=== PATIENT | male | born 1940 | race Caucasian/White ===

== ENCOUNTER 2019-12-21 15:30 | Emergency (ER) | payer MEDICARE, OTHER ==
[~2019-12-21 15:30] MED LIST: Iopamidol 370 76% 100 ML VIAL ONE
[2019-12-21] MEDS ORDERED: Nitroglycerin 2% Ointment 1 INCH/1 GM Packet ONE (15:47)
[2019-12-21] MEDS ORDERED: Aspirin Chewable 81 MG TAB ONE ×2 (15:47→15:57)
[2019-12-21 16:12] LABS: Hemoglobin 14.9 g/dL (14.0-18.0); Lymphocytes 31 % (21-51); MDiff Complete? YES; Mean Corpuscular HGB CONC 31.9 g/dL (32.0-36.0); Mean Corpuscular Hemoglobin 28.3 pg (27.0-31.0); Mean Corpuscular Volume 88.6 fL (78.0-98.0); Monocytes 6 % (0-10); Neutrophil 55 % (42-75); Platelet Count 302 thou/uL (130-400); RBC Distribution Width 12.4 % (11.5-14.5); Reactive Lymphocytes 8 % (0-10); Red Blood Cell (RBC) Count 5.26 mill/uL (4.70-6.10); White Blood Cell (WBC) Count 7.6 thou/uL (4.8-10.8)
--- NOTE | 2019-12-21 16:18 | RAD ---
CHEST ONE VIEW: 12/21/19 INDICATIONS: Chest pain. COMPARISON: None. FINDINGS: Lungs are clear. Heart size is normal appearing. No pleural effusion or pneumothorax is evident. Ther e is some pleural based calcification involving the left lung apex. No acute osseous abnormality is e vident. IMPRESSION: No acute cardiopulmonary abnormality. POS: [facility]
[2019-12-21 16:31] LABS: ALT (SGPT) 14 U/L (8-55); AST (SGOT) 19 U/L (5-34); Albumin 4.7 g/dL (3.4-4.8); Alkaline Phosphatase 93 U/L (40-110); Anion Gap 18 mmol/L (10-20); BUN (Urea Nitrogen) 15 mg/dL (8.4-25.7); Bilirubin, Total 0.6 mg/dL (0.2-1.2); CK (CPK) 113 U/L (30-200); Calc. Creatinine Clearance 0 mL/min (70-130); Calcium 9.6 mg/dL (7.8-10.44); Carbon Dioxide 26 mmol/L (23-31); Chloride 98 mmol/L (98-107); Estimated GFR-MDRD 60; Globulin 3.4 g/dL (2.4-3.5); Glucose 104 mg/dL (83-110); Lipase 29 U/L (8-78); Potassium 4.1 mmol/L (3.5-5.1); Protein, Total 8.1 g/dL (5.8-8.1); Sodium 138 mmol/L (136-145)
--- NOTE | 2019-12-21 18:12 | CT ---
CT PULMONARY ANGIOGRAM WITH IV CONTRAST AND 3-D POSTPROCESSING: HISTORY:Chest pain FINDINGS: There is good contrast opacification of the pulmonary arterial vasculature without filling defects to suggest pulmonary embolism. The thoracic aorta is well opacified without aneurysm or dissection. No pleural or pericardial effusions are seen. No pneumothoraces, focal areas of consolidation or lung masses are noted. There is biapical scarring. There is a 5 mm peripheral nodule in the left lower lobe. A 4 mm nodule is seen in the periphery of the left upper lobe. There are degenerative changes in the spine. Upper abdominal tomograms demonstrate multiple cysts in the liver.. IMPRESSION: 1. No CT evidence of pulmonary embolism. 2. Left lung nodule should be monitored with follow-up CT scan in 12 months.
== END 2019-12-21 18:50 | disposition short-term general hospital (02) ==
LOC: MADERS 15:30
DX: R07.9 Chest pain, unspecified (principal)
CPT/HCPCS: 36415; 71045; 71275; 80053; 82550; 83690; 84484; 85025; 85379; 93005; 94760; Q9967

== ENCOUNTER 2019-12-30 17:38 | Inpatient (IN) | payer MEDICARE, OTHER ==
[2020-01-02 16:58] VITALS: BMI 20.7
[2020-01-02] MEDS: Atorvastatin Calcium 10 MG TAB PO SCH (20:13)
[2020-01-02] MEDS: Lisinopril 5 MG TAB PO SCH (20:16)
[2020-01-02] MEDS: Metoprolol Tartrate 25 MG TAB PO SCH (20:17)
[2020-01-02] MEDS ORDERED: FLU VACC QS2020-21(65YR UP)/PF 240 MCG/0.7 ML SYRINGE IM ONE (21:00)
[2020-01-02] MEDS ORDERED: Donepezil HCl 10 MG TAB PO SCH (21:00)
[2020-01-02] MEDS ORDERED: traZODone HCl 50 MG TAB PO PRN (21:59)
--- NOTE | 2020-01-03 05:24 | HP ---
REASON FOR ADMISSION: Skilled rehab in [facility] after recent surgery. HISTORY OF THE PRESENT ILLNESS AND HOSPITAL COURSE: Mr. Avila is a 79-year-old male with history of hypertension and dementia. The patient was admitted for chest pain on 12/22/2019 at [facility]. Initial cardiac evaluation showed negative serial cardiac biomarkers. Cardiac stress testing showed evidence of reversible ischemia in multiple regions. Cardiology service was consulted and patient underwent cardiac catheterization showing multiple vessel disease necessitating evaluation by the cardiovascular surgeon. The patient underwent coronary artery bypass grafting on 12/23/2019, undergoing a DUDLEY to LAD and saphenous vein graft to PDA, OM1 and OM2. Postoperatively, the patient was noted with acute delirium and altered mentation requiring Precedex and Geodon for control. Per report, the patient was slow to clinically improve, however, stable after approximately 6-7 days postoperative, tolerating regular intake and ambulating with a rolling walker in physical therapy. Cardiac status dominguez, the patient has stabilized postoperatively, but due to patient's altered mentation, delirium, and need for ongoing supervised exercises, the patient was deemed an appropriate candidate to transfer for [facility]. He was not placed on anticoagulant by senior behavioral scientist due to unsteadiness of gait and confusion, he is at risks for fall. Prior to discharge, the patient was reported to have increased confusion, impulsiveness, and wandering behaviors requiring sitter. After talking to the family, the family agreed to arrange for a sitter day and night in [facility]. On 01/02/2020, patient was transferred to [place] to proceed with rehab. PAST MEDICAL HISTORY: History of psoriasis, hypertension, dementia, advanced with behavioral disturbances. PAST SURGICAL HISTORY: Tonsillectomy. FAMILY HISTORY: Noncontributory. SOCIAL HISTORY: The patient is . Never been a smoker. Denies alcohol intake, no drug use. Baseline activity level independent ambulation. CURRENT MEDICATIONS: 1. Amiodarone 400 mg p.o. daily. 2. Lipitor 10 mg p.o. at bedtime. 3. Lisinopril 5 mg p.o. b.i.d. 4. Metoprolol 25 mg p.o. b.i.d. 5. Geodon 25 mg q.a.m. 6. Aricept 10 mg p.o. at bedtime. 7. Enteric-coated aspirin 325 mg p.o. daily that was subsequently changed to 81 mg p.o. daily prior to discharge. ALLERGIES: NKDA. REVIEW OF SYSTEMS: Limited secondary to patient's confusion/advanced dementia. PHYSICAL EXAMINATION: VITAL SIGNS: Blood pressure 135/65, temp 99.1, pulse 61, respiration 18, O2 98% on room air are correction, weight 140 pounds and 1 ounce, height 5 feet 9 inches. GENERAL: The patient is awake, alert, knows his name only. He does not know where he is. States he is "somewhere here". Comfortable, not in distress. No signs of agony. HEENT: Normocephalic, atraumatic. PERRL. Intact EOM. Anicteric sclerae. Oral mucosa moist. Tongue is at midline. No tremors. NECK: Supple. No LAD. Flat JVD. CHEST: Chest normal excursion. Nonlabored breathing. A vertical postoperative incision in chest is dry, intact. No drainage. No erythema. No signs of infection. Well-coapted edges, no periwound erythema or swelling. LUNGS: Clear to auscultation bilaterally. CARDIAC: RRR. GI: Abdomen is flat, soft. Normoactive bowel sounds. Nondistended, nontender. No rebound or guarding. Negative CVA tenderness bilaterally. EXTREMITIES: No edema, no cyanosis. SKIN: Scaly rashes on the buttocks/sacral region and thighs. NEUROLOGIC: Nonfocal, gait unsteady. Spontaneous speech. Answers simple questions with some appropriateness. Poor memory. PSYCHIATRIC: Appears calm with appropriate demeanor and affect, pleasantly confused. socially interactive. LABORATORY STUDIES: Most recent labs from 01/02/2020, hemoglobin 11.5, hematocrit 34.2. Baseline hemoglobin 13.9 and hematocrit 40.5 on 12/22/2019. B12 528, folate 3.30. Sodium 139, potassium 3.5, BUN 18, creatinine 0.79, estimated GFR greater than 90, glucose 103, calcium 7.9, magnesium 1.8. Baseline calcium on 12/26/2019 was 8.6. COVID negative on 12/21/2019. ASSESSMENT AND PLAN: 1. Deconditioning secondary to general weakness. 2. Coronary artery disease status post coronary artery bypass grafting x4 vessels, 12/23/2019. 3. Paroxysmal atrial fibrillation with rapid ventricular response, rate controlled. 4. Alzheimer's dementia, advanced. 5. Dementia with behavioral disturbances. 6. History of delirium,postoperatively. 7. Postoperative anemia. 8. Hypertension. 9. Dyslipidemia. PLAN: 1. The patient is admitted to [facility] for skilled rehab. 2. PT/OT eval and treat. 3. Continue all current medications as per list. We will add ferrous sulfate 325 mg p.o. daily for postoperative anemia. 4. DVT prophylaxis with aspirin. 5. Follow up with Dr. Cedeño in 2 weeks. 6. Follow up with Dr. Montes in 3 weeks. 7. Repeat chest x-ray in six weeks per discharge order. 6. Further recommendations depending on the hospital course. CODE STATUS: reports DNAR. DISPOSITION: Home versus possible placement. Job ID: [id number] MTDD
[2020-01-03] MEDS ORDERED: Ferrous Sulfate 325 MG TAB PO SCH (08:00)
[2020-01-03] MEDS ORDERED: Ziprasidone 20 MG CAP PO SCH (08:00)
[2020-01-03] MEDS ORDERED: METHYLCELLULOSE 500 MG PO SCH (09:00)
[2020-01-03] MEDS ORDERED: Polyethylene Glycol 3350 17 GM Packet PO SCH (09:00)
[2020-01-03] MEDS ORDERED: Folic Acid 1 MG TAB PO SCH (09:00)
[2020-01-03] MEDS ORDERED: Multivitamin W/ Minerals 1 TAB PO SCH (09:00)
[2020-01-03] MEDS ORDERED: Amiodarone 200 MG TAB PO SCH (09:00)
[2020-01-03] MEDS ORDERED: Aspirin 81 mg Enteric Coated Tablet PO SCH (09:00)
[2020-01-03] MEDS: Metoprolol Tartrate 25 MG TAB PO SCH ×2 (09:21→21:17)
[2020-01-03] MEDS: Lisinopril 5 MG TAB PO SCH ×2 (09:21→21:18)
[2020-01-03] MEDS: Amiodarone 200 MG TAB PO SCH ×2 (09:21→21:17)
[2020-01-03] MEDS: Atorvastatin Calcium 10 MG TAB PO SCH (21:17)
[2020-01-04 02:34] VITALS: BP 172/70; TEMP 97.5
[2020-01-12] MEDS ORDERED: Amiodarone 200 MG TAB PO SCH (09:00)
--- NOTE | 2020-02-07 09:37 | DIS ---
DATE OF ADMISSION: 01/02/2020 DATE OF DISCHARGE: 01/04/2020 DISCHARGE DIAGNOSES: 1. Scalp laceration secondary to fall. 2. Ground level fall. SECONDARY DIAGNOSES: 1. Coronary artery disease, status post coronary artery bypass grafting x4 vessels on 12/23/2019. 2. Paroxysmal atrial fibrillation with rapid ventricular response.Rate controlled. 3. Alzheimer's dementia, advanced. 4. Dementia with behavioral disturbances. 5. History of delirium postoperatively. 6. Postoperative anemia. 7. Hypertension. 8. Dyslipidemia. 9. Deconditioning secondary to general weakness. 10. Abnormality of gait/unsteadiness of balance. HISTORY OF PRESENT ILLNESS AND HOSPITAL COURSE: Mr. Avila is a 79-year-old male who had a history of CAD with multiple vessels, status post CABG x4 done on 12/31/2019 at [facility]. Postoperatively, patient developed acute delirium deemed to be secondary to advanced Alzheimer's disease. After patient was stabilized, he was subsequently transferred to [facility] on 01/02/2020 for purposes of skilled rehab. The patient has significant wandering behaviors that requires 24-hour sitter since he had his surgery. On the night of 01/03/2020, patient walked out of the room on his own while fell asleep at bedside. Nursing staff heard sound coming from the hallway and they noted the patient in the floor across his room with blood oozing under his head. The patient was subsequently transported to the ER for stretcher with C-collar for further evaluation and appropriate management.Per ER report, the patient had sustained occipital scalp laceration that requires staple repair and found to have small Pneumothorax on the left by CT scan, recommending further evaluation to a tertiary hospital. The patient was subsequently transferred to [facility] for higher level of care. Job ID: [id number] [facility]
== END 2020-01-04 02:26 | disposition short-term general hospital (02) | DRG 57 ==
LOC: MADMS 01-02 16:05
PROVIDERS: ADMIT Family Medicine; ATTEND Family Medicine
DX: G30.9 Alzheimer's disease, unspecified (principal); F05 Delirium due to known physiological condition; F02.81 Dementia in other diseases classified elsewhere, unspecified severity, with behavioral disturbance; R53.1 Weakness; I25.10 Atherosclerotic heart disease of native coronary artery without angina pectoris; I48.0 Paroxysmal atrial fibrillation; I10 Essential (primary) hypertension; E78.5 Hyperlipidemia, unspecified; Z66 Do not resuscitate; Z95.0 Presence of cardiac pacemaker; Z90.49 Acquired absence of other specified parts of digestive tract; D64.9 Anemia, unspecified
CPT/HCPCS: 90471; 90662; 90732; G0008; G0009

== ENCOUNTER 2020-01-04 00:19 | Emergency (ER) | payer MEDICARE, OTHER ==
[2020-01-04 00:52] LABS: #Basophils 0.1 thou/uL (0.0-0.2); #Eosinphils 0.3 thou/uL (0.0-0.7); #Lymphocytes 1.1 thou/uL (1.20-3.40); #Monocytes 0.8 thou/uL (0.11-0.59); #Neutrophils 5.6 thou/uL (1.40-6.50); %Basophils 0.7 % (0.0-1.0); %Eosinophils 3.6 % (0.0-10.0); %Lymphocytes 14.2 % (21.0-51.0); %Monocytes 10.1 % (0.0-10.0); %Neutrophils 71.4 % (42.0-75.0); Hemoglobin 10.2 g/dL (14.0-18.0); Mean Corpuscular HGB CONC 33.4 g/dL (32.0-36.0); Mean Corpuscular Hemoglobin 29.2 pg (27.0-31.0); Mean Corpuscular Volume 87.6 fL (78.0-98.0); Mean Platelet Volume 7.9 fL (7.4-10.4); Platelet Count 326 thou/uL (130-400); RBC Distribution Width 12.2 % (11.5-14.5); Red Blood Cell (RBC) Count 3.47 mill/uL (4.70-6.10); White Blood Cell (WBC) Count 7.8 thou/uL (4.8-10.8)
[2020-01-04] MEDS ORDERED: Lidocaine 1% w/Epinephrine 1:100K 20 ML VIAL ONE (00:53)
[2020-01-04 01:01] LABS: Prothrombin Time 13.3 sec (12.0-14.7)
[2020-01-04 01:12] LABS: ALT (SGPT) 41 U/L (8-55); AST (SGOT) 34 U/L (5-34); Albumin 3.3 g/dL (3.4-4.8); Alkaline Phosphatase 61 U/L (40-110); Anion Gap 16 mmol/L (10-20); BUN (Urea Nitrogen) 13 mg/dL (8.4-25.7); Bilirubin, Total 0.5 mg/dL (0.2-1.2); Calc. Creatinine Clearance 0 mL/min (70-130); Carbon Dioxide 23 mmol/L (23-31); Chloride 101 mmol/L (98-107); Estimated GFR-MDRD 71; Globulin 2.5 g/dL (2.4-3.5); Glucose 94 mg/dL (83-110); Protein, Total 5.8 g/dL (5.8-8.1); Sodium 136 mmol/L (136-145)
[2020-01-04] MEDS ORDERED: Acetaminophen 500 MG TAB ONE (02:19)
--- NOTE | 2020-01-04 07:15 | CT ---
PRELIMINARY REPORT/[facility]/EMERGENCY AFTER HOURS PROCEDURE EXAM: CT Head Without Intravenous Contrast. CLINICAL HISTORY: Fell from standing height. Loc back of head TECHNIQUE: Axial computed tomography images of the head/brain without intravenous contrast. COMPARISON: None provided. FINDINGS: BRAIN: There is diffuse cerebral atrophy. No acute intraparenchymal hemorrhage. No mass lesion. No CT evide nce for acute territorial infarct. No midline shift or extra-axial collection. VENTRICLES: No hydrocephalus. ORBITS: The orbits are unremarkable. SINUSES AND MASTOIDS: The paranasal sinuses and mastoid air cells are clear. SOFT TISSUES: No significant facial or scalp soft tissue swelling evident. No radiopaque foreign body is seen. BONES: No acute skull fracture. IMPRESSION: No acute intracranial injury. ELECTRONICALLY SIGNED BY: Ansley Daniel MD Jan 04, 2020 1:11:22 AM CDT This report is intended for review by the ordering physician only, in accordance of law. If you recei ve this report in error, please call [facility] at [phone]. FINAL REPORT Exam: Head CT without contrast HISTORY: Patient fell from standing height. Scalp laceration. COMPARISON: none FINDINGS: Hemorrhage: No intraparenchymal hemorrhage or extra-axial hematoma. Brain parenchyma: Cortical [place]-white matter differentiation is preserved. No mass effect or midline shift. Basilar cisterns are patent. Ventricular system: Ventricles and sulci are patent and symmetric. Calvarium: Intact. Scalp: Small left parietal scalp hematoma. No radiopaque foreign body. Sinuses and mastoid air cells: Adequate aeration. IMPRESSION: 1. This report is essentially in agreement with initial report by [facility]. 2. No intracranial post traumatic sequelae. Transcribed Date/Time: 01/04/2020 7:34 AM
--- NOTE | 2020-01-04 07:28 | CT ---
PRELIMINARY REPORT/[facility]/EMERGENCY AFTER HOURS PROCEDURE Receipt of this report by the clinical staff was confirmed with HAROON GAVIRIA MD by Aleida Good on Jan 04, 2020 01:18:00 CDT. Addendum electronically signed by Aleida Good on January 04, 2020 1:18:48 AM CDT EXAM: CT Cervical Spine Without Intravenous Contrast. CLINICAL HISTORY: FELL FROM STANDING HEIGHT . LAC ON BACK OF HEAD R/O NECK PAIN TECHNIQUE: Axial computed tomography images of the cervical spine without intravenous contrast. Sagittal and cor onal reformations performed. COMPARISON: None provided. FINDINGS: BONES: No acute fracture or focal osseous lesion. Bony alignment is anatomic. DISCS / DEGENERATIVE CHANGES: There is evidence of cervical spondylosis and degenerative disc disease There is no foraminal stenosis most severe on the left at C3-4 and C6-7. No significant central canal stenosis. SOFT TISSUES: No prevertebral soft tissue swelling. No apical pneumothorax. Chest: There is a large dependent left pleural effusion. There is a small left apical pneumothorax. IMPRESSION: No acute cervical spine injury. Small left pneumothorax with moderate sized left pleural effusion. Correlation with chest radiograph is recommended. ELECTRONICALLY SIGNED BY: Ansley Daniel MD Jan 04, 2020 1:15:01 AM CDT This report is intended for review by the ordering physician only, in accordance of law. If you recei ve this report in error, please call [facility] at [phone]. FINAL REPORT Exam: CT cervical spine without contrast HISTORY: Trauma. Pain. COMPARISON: None FINDINGS: No craniocervical dissociation. Appropriate alignment of the lateral masses of C1 and C2. Intact odon toid process Appropriate alignment of the facets. Straightening of normal cervical lordosis is presumed to be due to patient position, muscle spasm or cervical collar. Current study does not assess for ligamentous injury. Soft tissue neck structures: No mass, lymphadenopathy or hematoma. No prevertebral soft tissue swelli ng. Upper mediastinum and lung apices: There is a left sided pleural effusion with adjacent atelectasis. Chronic changes in the lung apices are noted. There is a small left-sided pneumothorax. Central spinal canal: Neural foramina and central spinal canal are patent. Evaluation is limited by t echnique Vertebral bodies: Cervical spine vertebral body height is maintained. No fracture. IMPRESSION: 1. This report is in agreement with initial report by [facility] 2. Left-sided hydropneumothorax. 3. No cervical spine fracture. Transcribed Date/Time: 01/04/2020 7:37 AM
--- NOTE | 2020-01-04 07:52 | RAD ---
Portable frontal chest radiograph: 01/04/2020 COMPARISON: 12/26/2019 HISTORY: Fall, trauma, pain FINDINGS: Cervical spine CT performed 01/04/2020 demonstrates pleural fluid on the left with a tiny p neumothorax in the left lung apex. On this exam there is dense opacity in the left base obscuring the left hemidiaphragm and demonstrate blunting of the left costophrenic angle, evidence of left pleu ral fluid with nonspecific partial opacification of the left lower lobe. The tiny pneumothorax seen on recent CT is not discretely visualized on this radiograph, likely secondary to its small size. Midline sternotomy wires are present. The right lung appears clear. There is questionable small volume subcutaneous gas within the left chest wall laterally. There may b e a sixth rib fracture laterally on the left. Recommend further assessment with a chest CT. IMPRESSION: Pleural and parenchymal opacity in the left lung base. Tiny pneumothorax seen on the left on cervical spine CT cannot be visualized, likely secondary to its small size. Probable lateral left sided rib fracture. Further assessment via CT of the chest is suggested.
== END 2020-01-04 02:26 | disposition short-term general hospital (02) ==
LOC: MADERS 00:19
DX: S01.01XA Laceration without foreign body of scalp, initial encounter (principal); F03.90 Unspecified dementia, unspecified severity, without behavioral disturbance, psychotic disturbance, mood disturbance, and anxiety; J90 Pleural effusion, not elsewhere classified; J93.83 Other pneumothorax; E78.5 Hyperlipidemia, unspecified; I10 Essential (primary) hypertension; Z95.1 Presence of aortocoronary bypass graft; Z79.82 Long term (current) use of aspirin; Z79.899 Other long term (current) drug therapy; W19.XXXA Unspecified fall, initial encounter; Y92.29 Other specified public building as the place of occurrence of the external cause
CPT/HCPCS: 12002; 70450; 71045; 72125; 80053; 85025; 85610; 93005

== ENCOUNTER 2020-01-05 16:15 | Inpatient (IN) | payer MEDICARE, OTHER ==
[2020-01-05] MEDS: Lisinopril 5 MG TAB PO SCH (21:43)
[2020-01-05] MEDS: Acetaminophen 325 MG TAB PO PRN (21:43)
[2020-01-05] MEDS: Metoprolol Tartrate 25 MG TAB PO SCH (21:43)
[2020-01-05] MEDS: Atorvastatin Calcium 10 MG TAB PO SCH (21:43)
[2020-01-05] MEDS: Amiodarone 200 MG TAB PO SCH (21:43)
[2020-01-05] MEDS: traZODone HCl 50 MG TAB PO SCH (21:43)
[2020-01-05] MEDS: Senokot S 8.6-50 MG TAB PO SCH (21:44)
[2020-01-06] MEDS: Aspirin 81 mg Enteric Coated Tablet PO SCH (08:10)
[2020-01-06] MEDS: Multivitamin W/ Minerals 1 TAB PO SCH (08:10)
[2020-01-06] MEDS: Ferrous Sulfate 325 MG TAB PO SCH (08:12)
[2020-01-06] MEDS: Potassium Chloride 20 MEQ TAB PO SCH (08:12)
[2020-01-06] MEDS: Folic Acid 1 MG TAB PO SCH (08:13)
[2020-01-06] MEDS: Metoprolol Tartrate 25 MG TAB PO SCH ×2 (08:13→20:13)
[2020-01-06] MEDS: Lisinopril 5 MG TAB PO SCH ×2 (08:13→20:12)
[2020-01-06] MEDS: Amiodarone 200 MG TAB PO SCH ×2 (08:13→20:13)
[2020-01-06] MEDS: Polyethylene Glycol 3350 17 GM Packet PO SCH (08:14)
[2020-01-06] MEDS: Metamucil PACK PO SCH (08:14)
[2020-01-06] MEDS: Senokot S 8.6-50 MG TAB PO SCH ×2 (08:15→20:11)
--- NOTE | 2020-01-06 13:38 | HP ---
REASON FOR ADMISSION: Readmitted to [facility] to continue skilled rehab. HISTORY OF PRESENT ILLNESS: A 79-year-old male with history of coronary artery disease, status post recent CABG; history of hypertension and advanced dementia with behavioral disturbances. The patient recently had a CABG done. He developed an acute delirium and agitation during the postoperative period,which was treated and did fine with maintenance of Geodon 1 tablet in a.m. only . After he was discharged to [facility] with an understanding that the family will provide 24-hour sitter, the patient apparently had a fall while is in the room and fell asleep. Patient apparently walked out in the corridor on his own and fell to the floor on 01/04/2020. He sustained a scalp laceration on the occiput, which was sutured at [facility]. CT of the head showed no acute intracranial process. CT of the cervical spine done at [facility] reported a small pneumothorax, which was not identified on the chest x-ray. The patient was subsequently transferred to [facility] for further evaluation. The patient was placed under observation while in the hospital. Supportive measures/pain management were done. Small pneumothorax was conservatively managed with recommendations to continue to monitor. The patient remains to have no respiratory symptoms. The patient was subsequently transferred back on 01/05/2020 at [facility] with recommendations to continue therapy. He will continue aspirin for CAD. He is not a good candidate for anticoagulation secondary to increased risk of falling and confusion. When admitted, was in the room with the patient. reports that they were now able to get a 24-hour private sitter. Overall, reports the patient is doing well. The patient was awake, alert, and very interactive during the examination. He contributes some on the history, but remains confused overall with the information given. He denies pain at this point, and he states he is doing well. No new issues reported by and the patient. PAST MEDICAL HISTORY: As per HPI. Postoperative anemia, postoperative delirium, postoperative atrial fibrillation. PAST SURGICAL HISTORY: Reports CABG, tonsillectomy. FAMILY HISTORY: Noncontributory. SOCIAL HISTORY: Nonsmoker. Denies alcohol or illicit drug use. The patient is . Tangela Avila is the who is actively involved with the patient and acts as the surrogate decision maker. MEDICATIONS: 1. Donepezil 10 mg p.o. at bedtime. 2. Methylcellulose 500 mg p.o. daily. 3. Multivitamins p.o. daily. 4. Atorvastatin 10 mg p.o. daily. 5. Lisinopril 5 mg p.o. b.i.d. 6. Metoprolol 25 mg p.o. b.i.d. 7. MiraLAX 17 g p.o. daily. 8. Geodon 20 mg q.a.m. 9. Aspirin 81 mg p.o. daily. 10. Folic acid 1 mg p.o. daily. 11. Amiodarone 200 mg p.o. b.i.d. 12. Ferrous sulfate 325 mg p.o. daily. 13. Potassium chloride 20 mEq p.o. daily. 14. Trazodone 25 mg p.o. daily. REVIEW OF SYSTEMS: Limited secondary to dementia. PHYSICAL EXAMINATION: VITAL SIGNS: Blood pressure 153/64, temperature 98.2, pulse 61, respirations 18, O2 saturation 97% on room air. GENERAL: The patient is awake, alert, knows his name, recognizes his . Normal speech. Interactive. Answers simple questions. Not in acute distress. HEENT: PERRL. Intact EOM. Nonicteric sclerae. Oral mucosa is moist. NECK: Supple. No LAD. CHEST: Normal excursion. Clear to auscultation bilaterally. CARDIAC: Rate controlled. Normal S1 and S2. ABDOMEN: Flat, soft. Normoactive bowel sounds. Nondistended, nontender. No rebound. No guarding. Negative CVA tenderness bilaterally. EXTREMITIES: No edema. No cyanosis. SKIN: Postoperative CABG site on anterior chest is dry, well healed in appearance. No erythema. No signs of infection. Scalp laceration intact, dry. Hoven in place. No erythema. No edema. Nontender to touch. No drainage. NEUROLOGY: awake and alert, oriented to person, he knows he is in the hospital. spontaneous speech, non focal, gait-unsteady. PSYCHIATRIC: Pleasantly confused, happy, calm, cooperative. ASSESSMENT AND PLAN: 1. Physical deconditioning secondary to general weakness. 2. Multiple coronary artery disease, status post coronary artery bypass grafting. 3. Postoperative anemia. 4. Ground level fall. 5. Small pneumothorax per CT, secondary to fall, asymptomatic. 6. Scalp laceration secondary to fall. S/p repair. 7. Alzheimer disease, late onset. 8. Dementia with behavioral disturbances. 9. Postoperative delirium. 10. Dyslipidemia. 11. Hypertension. 12..Unsteady gait. PLAN: 1. The patient was readmitted back to [place] to continue rehab postoperatively secondary to physical deconditioning and general weakness. We will continue current medications as per list. The patient remains at risk for fall requiring constant reminders, supervision, and cuing. The patient needs 24-hour sitter. 2. DVT prophylaxis with low-dose aspirin. 3. Further recommendations depending on the hospital course. 4. CODE STATUS: discussed with , who confirmed DNAR. 5. DISPOSITION: home versus prison placement. Job ID: [id number] [facility]
[2020-01-06] MEDS: Atorvastatin Calcium 10 MG TAB PO SCH (20:11)
[2020-01-06] MEDS: traZODone HCl 50 MG TAB PO SCH (20:11)
[2020-01-07] MEDS: Potassium Chloride 20 MEQ TAB PO SCH (08:51)
[2020-01-07] MEDS: Aspirin 81 mg Enteric Coated Tablet PO SCH (08:51)
[2020-01-07] MEDS: Ferrous Sulfate 325 MG TAB PO SCH (08:51)
[2020-01-07] MEDS: Multivitamin W/ Minerals 1 TAB PO SCH (08:51)
[2020-01-07] MEDS: Amiodarone 200 MG TAB PO SCH ×2 (08:51→20:21)
[2020-01-07] MEDS: Folic Acid 1 MG TAB PO SCH (08:51)
[2020-01-07] MEDS: Senokot S 8.6-50 MG TAB PO SCH ×2 (08:52→20:21)
[2020-01-07] MEDS: Polyethylene Glycol 3350 17 GM Packet PO SCH (08:52)
[2020-01-07] MEDS: Metamucil PACK PO SCH (08:52)
[2020-01-07] MEDS ORDERED: Ondansetron ODT 4 MG TAB PO PRN (12:35)
[2020-01-07] MEDS: Atorvastatin Calcium 10 MG TAB PO SCH (20:21)
[2020-01-07] MEDS: traZODone HCl 50 MG TAB PO SCH (20:21)
[2020-01-08] MEDS: Senokot S 8.6-50 MG TAB PO SCH ×2 (10:04→20:58)
[2020-01-08] MEDS: Ferrous Sulfate 325 MG TAB PO SCH (10:04)
[2020-01-08] MEDS: Potassium Chloride 20 MEQ TAB PO SCH (10:04)
[2020-01-08] MEDS: Aspirin 81 mg Enteric Coated Tablet PO SCH (10:05)
[2020-01-08] MEDS: Folic Acid 1 MG TAB PO SCH (10:05)
[2020-01-08] MEDS: Multivitamin W/ Minerals 1 TAB PO SCH (10:05)
[2020-01-08] MEDS: Amiodarone 200 MG TAB PO SCH ×2 (10:05→20:58)
[2020-01-08] MEDS: Metamucil PACK PO SCH (10:21)
[2020-01-08] MEDS: Polyethylene Glycol 3350 17 GM Packet PO SCH (10:21)
[2020-01-08] MEDS: Atorvastatin Calcium 10 MG TAB PO SCH (20:58)
[2020-01-08] MEDS: traZODone HCl 50 MG TAB PO SCH (20:59)
[2020-01-09] MEDS: Ferrous Sulfate 325 MG TAB PO SCH (07:51)
[2020-01-09] MEDS: Senokot S 8.6-50 MG TAB PO SCH ×2 (07:51→21:06)
[2020-01-09] MEDS: Multivitamin W/ Minerals 1 TAB PO SCH (07:51)
[2020-01-09] MEDS: Aspirin 81 mg Enteric Coated Tablet PO SCH (07:52)
[2020-01-09] MEDS: Polyethylene Glycol 3350 17 GM Packet PO SCH (07:52)
[2020-01-09] MEDS: Metamucil PACK PO SCH (07:52)
[2020-01-09] MEDS: Amiodarone 200 MG TAB PO SCH ×2 (07:52→21:05)
[2020-01-09] MEDS: Folic Acid 1 MG TAB PO SCH (07:53)
[2020-01-09] MEDS: Potassium Chloride 20 MEQ TAB PO SCH (07:53)
[2020-01-09] MEDS: Atorvastatin Calcium 10 MG TAB PO SCH (21:05)
[2020-01-09] MEDS: traZODone HCl 50 MG TAB PO SCH (21:07)
[2020-01-10] MEDS: Aspirin 81 mg Enteric Coated Tablet PO SCH (08:20)
[2020-01-10] MEDS: Multivitamin W/ Minerals 1 TAB PO SCH (08:20)
[2020-01-10] MEDS: Potassium Chloride 20 MEQ TAB PO SCH (08:20)
[2020-01-10] MEDS: Amiodarone 200 MG TAB PO SCH ×2 (08:20→20:16)
[2020-01-10] MEDS: Ferrous Sulfate 325 MG TAB PO SCH (08:20)
[2020-01-10] MEDS: Senokot S 8.6-50 MG TAB PO SCH ×2 (08:20→20:16)
[2020-01-10] MEDS: Folic Acid 1 MG TAB PO SCH (08:20)
[2020-01-10] MEDS: Metamucil PACK PO SCH (08:24)
[2020-01-10] MEDS: Polyethylene Glycol 3350 17 GM Packet PO SCH (08:24)
[2020-01-10] MEDS: traZODone HCl 50 MG TAB PO SCH (20:16)
[2020-01-10] MEDS: Atorvastatin Calcium 10 MG TAB PO SCH (20:17)
[2020-01-11] MEDS: Amiodarone 200 MG TAB PO SCH ×2 (08:18→20:48)
[2020-01-11] MEDS: Potassium Chloride 20 MEQ TAB PO SCH (08:18)
[2020-01-11] MEDS: Ferrous Sulfate 325 MG TAB PO SCH (08:19)
[2020-01-11] MEDS: Metamucil PACK PO SCH (08:19)
[2020-01-11] MEDS: Polyethylene Glycol 3350 17 GM Packet PO SCH (08:19)
[2020-01-11] MEDS: Folic Acid 1 MG TAB PO SCH (08:19)
[2020-01-11] MEDS: Multivitamin W/ Minerals 1 TAB PO SCH (08:19)
[2020-01-11] MEDS: Senokot S 8.6-50 MG TAB PO SCH ×2 (08:19→20:48)
[2020-01-11] MEDS: Aspirin 81 mg Enteric Coated Tablet PO SCH (08:19)
[2020-01-11] MEDS: Atorvastatin Calcium 10 MG TAB PO SCH (20:48)
[2020-01-11] MEDS: traZODone HCl 50 MG TAB PO SCH (20:48)
[2020-01-11] MEDS: Ziprasidone 20 MG CAP PO PRN (20:49)
[2020-01-12] MEDS: Amiodarone 200 MG TAB PO SCH ×2 (09:27→20:23)
[2020-01-12] MEDS: Polyethylene Glycol 3350 17 GM Packet PO SCH (09:27)
[2020-01-12] MEDS: Metamucil PACK PO SCH (09:27)
[2020-01-12] MEDS: Potassium Chloride 20 MEQ TAB PO SCH (09:27)
[2020-01-12] MEDS: Aspirin 81 mg Enteric Coated Tablet PO SCH (09:27)
[2020-01-12] MEDS: Senokot S 8.6-50 MG TAB PO SCH ×2 (09:28→20:23)
[2020-01-12] MEDS: Multivitamin W/ Minerals 1 TAB PO SCH (09:28)
[2020-01-12] MEDS: Folic Acid 1 MG TAB PO SCH (09:28)
[2020-01-12] MEDS: Ferrous Sulfate 325 MG TAB PO SCH (09:28)
[2020-01-12] MEDS: Atorvastatin Calcium 10 MG TAB PO SCH (20:23)
[2020-01-12] MEDS: traZODone HCl 50 MG TAB PO SCH (20:23)
[2020-01-13] MEDS: Amiodarone 200 MG TAB PO SCH ×2 (07:58→20:10)
[2020-01-13] MEDS: Potassium Chloride 20 MEQ TAB PO SCH (07:58)
[2020-01-13] MEDS: Aspirin 81 mg Enteric Coated Tablet PO SCH (07:58)
[2020-01-13] MEDS: Multivitamin W/ Minerals 1 TAB PO SCH (07:59)
[2020-01-13] MEDS: Ferrous Sulfate 325 MG TAB PO SCH (07:59)
[2020-01-13] MEDS: Polyethylene Glycol 3350 17 GM Packet PO SCH (07:59)
[2020-01-13] MEDS: Folic Acid 1 MG TAB PO SCH (07:59)
[2020-01-13] MEDS: Senokot S 8.6-50 MG TAB PO SCH ×2 (07:59→20:10)
[2020-01-13] MEDS: Metamucil PACK PO SCH (07:59)
[2020-01-13] MEDS: traZODone HCl 50 MG TAB PO SCH (20:09)
[2020-01-13] MEDS: Atorvastatin Calcium 10 MG TAB PO SCH (20:10)
[2020-01-14] MEDS: Polyethylene Glycol 3350 17 GM Packet PO SCH (08:07)
[2020-01-14] MEDS: Folic Acid 1 MG TAB PO SCH (08:07)
[2020-01-14] MEDS: Metamucil PACK PO SCH (08:07)
[2020-01-14] MEDS: Aspirin 81 mg Enteric Coated Tablet PO SCH (08:07)
[2020-01-14] MEDS: Senokot S 8.6-50 MG TAB PO SCH ×2 (08:08→20:40)
[2020-01-14] MEDS: Ferrous Sulfate 325 MG TAB PO SCH (08:08)
[2020-01-14] MEDS: Potassium Chloride 20 MEQ TAB PO SCH (08:08)
[2020-01-14] MEDS: Multivitamin W/ Minerals 1 TAB PO SCH (08:08)
[2020-01-14] MEDS: Amiodarone 200 MG TAB PO SCH ×2 (08:09→20:39)
[2020-01-14] MEDS: traZODone HCl 50 MG TAB PO SCH (20:39)
[2020-01-14] MEDS: Atorvastatin Calcium 10 MG TAB PO SCH (20:39)
[2020-01-15] MEDS: Multivitamin W/ Minerals 1 TAB PO SCH (08:13)
[2020-01-15] MEDS: Aspirin 81 mg Enteric Coated Tablet PO SCH (08:13)
[2020-01-15] MEDS: Senokot S 8.6-50 MG TAB PO SCH ×2 (08:13→20:46)
[2020-01-15] MEDS: Polyethylene Glycol 3350 17 GM Packet PO SCH (08:13)
[2020-01-15] MEDS: Metamucil PACK PO SCH (08:13)
[2020-01-15] MEDS: Potassium Chloride 20 MEQ TAB PO SCH (08:14)
[2020-01-15] MEDS: Folic Acid 1 MG TAB PO SCH (08:14)
[2020-01-15] MEDS: Amiodarone 200 MG TAB PO SCH ×2 (08:14→20:45)
[2020-01-15] MEDS: Ferrous Sulfate 325 MG TAB PO SCH (08:14)
[2020-01-15] MEDS: traZODone HCl 50 MG TAB PO SCH (20:43)
[2020-01-15] MEDS: Atorvastatin Calcium 10 MG TAB PO SCH (20:45)
[2020-01-16] MEDS: Polyethylene Glycol 3350 17 GM Packet PO SCH (08:50)
[2020-01-16] MEDS: Metamucil PACK PO SCH (08:50)
[2020-01-16] MEDS: Potassium Chloride 20 MEQ TAB PO SCH (08:51)
[2020-01-16] MEDS: Ferrous Sulfate 325 MG TAB PO SCH (08:51)
[2020-01-16] MEDS: Amiodarone 200 MG TAB PO SCH ×2 (08:51→19:52)
[2020-01-16] MEDS: Multivitamin W/ Minerals 1 TAB PO SCH (08:51)
[2020-01-16] MEDS: Senokot S 8.6-50 MG TAB PO SCH ×2 (08:51→19:50)
[2020-01-16] MEDS: Aspirin 81 mg Enteric Coated Tablet PO SCH (08:51)
[2020-01-16] MEDS: Folic Acid 1 MG TAB PO SCH (08:51)
[2020-01-16] MEDS: Midodrine HCl 2.5 MG TAB PO SCH ×2 (15:37→19:55)
[2020-01-16] MEDS: Atorvastatin Calcium 10 MG TAB PO SCH (19:50)
[2020-01-16] MEDS: traZODone HCl 50 MG TAB PO SCH (19:50)
[2020-01-17] MEDS: Polyethylene Glycol 3350 17 GM Packet PO SCH (08:10)
[2020-01-17] MEDS: Metamucil PACK PO SCH (08:10)
[2020-01-17] MEDS: Midodrine HCl 2.5 MG TAB PO SCH ×3 (08:10→20:04)
[2020-01-17] MEDS: Multivitamin W/ Minerals 1 TAB PO SCH (08:10)
[2020-01-17] MEDS: Amiodarone 200 MG TAB PO SCH ×2 (08:10→20:04)
[2020-01-17] MEDS: Folic Acid 1 MG TAB PO SCH (08:11)
[2020-01-17] MEDS: Potassium Chloride 20 MEQ TAB PO SCH (08:11)
[2020-01-17] MEDS: Aspirin 81 mg Enteric Coated Tablet PO SCH (08:11)
[2020-01-17] MEDS: Senokot S 8.6-50 MG TAB PO SCH ×2 (08:11→20:03)
[2020-01-17] MEDS: Ferrous Sulfate 325 MG TAB PO SCH (08:11)
[2020-01-17] MEDS: Atorvastatin Calcium 10 MG TAB PO SCH (20:03)
[2020-01-17] MEDS: traZODone HCl 50 MG TAB PO SCH (20:04)
[2020-01-18] MEDS: Aspirin 81 mg Enteric Coated Tablet PO SCH (08:19)
[2020-01-18] MEDS: Folic Acid 1 MG TAB PO SCH (08:19)
[2020-01-18] MEDS: Midodrine HCl 2.5 MG TAB PO SCH ×3 (08:19→21:12)
[2020-01-18] MEDS: Metamucil PACK PO SCH (08:19)
[2020-01-18] MEDS: Multivitamin W/ Minerals 1 TAB PO SCH (08:19)
[2020-01-18] MEDS: Amiodarone 200 MG TAB PO SCH ×2 (08:19→21:11)
[2020-01-18] MEDS: Ferrous Sulfate 325 MG TAB PO SCH (08:19)
[2020-01-18] MEDS: Senokot S 8.6-50 MG TAB PO SCH ×2 (08:20→21:42)
[2020-01-18] MEDS: Potassium Chloride 20 MEQ TAB PO SCH (08:20)
[2020-01-18] MEDS: Polyethylene Glycol 3350 17 GM Packet PO SCH (08:20)
[2020-01-18] MEDS: traZODone HCl 50 MG TAB PO SCH (21:11)
[2020-01-18] MEDS: Acetaminophen 325 MG TAB PO PRN (21:12)
[2020-01-18] MEDS: Atorvastatin Calcium 10 MG TAB PO SCH (21:12)
[2020-01-19] MEDS: Senokot S 8.6-50 MG TAB PO SCH ×2 (08:20→21:47)
[2020-01-19] MEDS: Ferrous Sulfate 325 MG TAB PO SCH (08:20)
[2020-01-19] MEDS: Amiodarone 200 MG TAB PO SCH ×2 (08:20→21:47)
[2020-01-19] MEDS: Midodrine HCl 2.5 MG TAB PO SCH ×3 (08:20→21:47)
[2020-01-19] MEDS: Aspirin 81 mg Enteric Coated Tablet PO SCH (08:20)
[2020-01-19] MEDS: Multivitamin W/ Minerals 1 TAB PO SCH (08:20)
[2020-01-19] MEDS: Folic Acid 1 MG TAB PO SCH (08:21)
[2020-01-19] MEDS: Polyethylene Glycol 3350 17 GM Packet PO SCH (08:21)
[2020-01-19] MEDS: Potassium Chloride 20 MEQ TAB PO SCH (08:21)
[2020-01-19] MEDS: Metamucil PACK PO SCH (08:22)
[2020-01-19] MEDS: Atorvastatin Calcium 10 MG TAB PO SCH (21:47)
[2020-01-19] MEDS: traZODone HCl 50 MG TAB PO SCH (21:48)
[2020-01-20 06:54] LABS: #Basophils 0.1 thou/uL (0.0-0.2); #Eosinphils 0.6 thou/uL (0.0-0.7); #Lymphocytes 1.8 thou/uL (1.20-3.40); #Monocytes 0.7 thou/uL (0.11-0.59); #Neutrophils 3.8 thou/uL (1.40-6.50); %Basophils 0.7 % (0.0-1.0); %Eosinophils 9.3 % (0.0-10.0); %Lymphocytes 25.3 % (21.0-51.0); %Monocytes 9.6 % (0.0-10.0); Hemoglobin 10.8 g/dL (14.0-18.0); Mean Corpuscular HGB CONC 31.2 g/dL (32.0-36.0); Mean Corpuscular Hemoglobin 28.5 pg (27.0-31.0); Mean Corpuscular Volume 91.3 fL (78.0-98.0); Mean Platelet Volume 7.5 fL (7.4-10.4); Platelet Count 219 thou/uL (130-400); RBC Distribution Width 12.9 % (11.5-14.5); Red Blood Cell (RBC) Count 3.78 mill/uL (4.70-6.10)
[2020-01-20 07:10] LABS: ALT (SGPT) 20 U/L (8-55); AST (SGOT) 18 U/L (5-34); Albumin 3.4 g/dL (3.4-4.8); Alkaline Phosphatase 89 U/L (40-110); Anion Gap 13 mmol/L (10-20); BUN (Urea Nitrogen) 14 mg/dL (8.4-25.7); Bilirubin, Total 0.5 mg/dL (0.2-1.2); Calc. Creatinine Clearance 52 mL/min (70-130); Calcium 8.7 mg/dL (7.8-10.44); Carbon Dioxide 28 mmol/L (23-31); Chloride 104 mmol/L (98-107); Estimated GFR-MDRD 73; Globulin 2.5 g/dL (2.4-3.5); Glucose 94 mg/dL (83-110); Potassium 4.1 mmol/L (3.5-5.1); Protein, Total 5.9 g/dL (5.8-8.1); Sodium 141 mmol/L (136-145)
[2020-01-20] MEDS: Metamucil PACK PO SCH (08:16)
[2020-01-20] MEDS: Midodrine HCl 2.5 MG TAB PO SCH ×3 (08:16→21:29)
[2020-01-20] MEDS: Polyethylene Glycol 3350 17 GM Packet PO SCH (08:16)
[2020-01-20] MEDS: Senokot S 8.6-50 MG TAB PO SCH ×2 (08:17→21:31)
[2020-01-20] MEDS: Aspirin 81 mg Enteric Coated Tablet PO SCH (08:17)
[2020-01-20] MEDS: Folic Acid 1 MG TAB PO SCH (08:17)
[2020-01-20] MEDS: Multivitamin W/ Minerals 1 TAB PO SCH (08:17)
[2020-01-20] MEDS: Ferrous Sulfate 325 MG TAB PO SCH (08:17)
[2020-01-20] MEDS: Amiodarone 200 MG TAB PO SCH ×2 (08:17→21:33)
[2020-01-20] MEDS: Potassium Chloride 20 MEQ TAB PO SCH (08:18)
--- NOTE | 2020-01-20 09:01 | RAD ---
XR Chest Pa Lat STANDARD History: Pneumothorax follow-up Comparison: Radiograph January 04, 2020 Findings: Lungs are clear. No pneumothorax or effusion. Cardiac silhouette and mediastinal contours a re within normal limits. No residual pneumothorax. Small peripheral 3 to 4 mm nodule within the lingula and left lower lobe are similar to the CTA chest November 2019. Recommendations at that time were given for a follow-up chest CT in 12 months. Impression: No residual pneumothorax appreciated.
[2020-01-20] MEDS: Atorvastatin Calcium 10 MG TAB PO SCH (21:29)
[2020-01-20] MEDS: traZODone HCl 50 MG TAB PO SCH (21:30)
[2020-01-21] MEDS: Ferrous Sulfate 325 MG TAB PO SCH (09:39)
[2020-01-21] MEDS: Amiodarone 200 MG TAB PO SCH ×2 (09:39→21:17)
[2020-01-21] MEDS: Multivitamin W/ Minerals 1 TAB PO SCH (09:39)
[2020-01-21] MEDS: Senokot S 8.6-50 MG TAB PO SCH ×2 (09:39→21:18)
[2020-01-21] MEDS: Potassium Chloride 20 MEQ TAB PO SCH (09:39)
[2020-01-21] MEDS: Metamucil PACK PO SCH (09:40)
[2020-01-21] MEDS: Midodrine HCl 2.5 MG TAB PO SCH ×3 (09:40→21:18)
[2020-01-21] MEDS: Folic Acid 1 MG TAB PO SCH (09:40)
[2020-01-21] MEDS: Polyethylene Glycol 3350 17 GM Packet PO SCH (09:40)
[2020-01-21] MEDS: Aspirin 81 mg Enteric Coated Tablet PO SCH (09:40)
[2020-01-21] MEDS: traZODone HCl 50 MG TAB PO SCH (21:17)
[2020-01-21] MEDS: Atorvastatin Calcium 10 MG TAB PO SCH (21:18)
[2020-01-22] MEDS: Folic Acid 1 MG TAB PO SCH (09:41)
[2020-01-22] MEDS: Senokot S 8.6-50 MG TAB PO SCH ×2 (09:41→21:53)
[2020-01-22] MEDS: Amiodarone 200 MG TAB PO SCH ×2 (09:41→21:53)
[2020-01-22] MEDS: Aspirin 81 mg Enteric Coated Tablet PO SCH (09:41)
[2020-01-22] MEDS: Multivitamin W/ Minerals 1 TAB PO SCH (09:41)
[2020-01-22] MEDS: Ferrous Sulfate 325 MG TAB PO SCH (09:41)
[2020-01-22] MEDS: Potassium Chloride 20 MEQ TAB PO SCH (09:42)
[2020-01-22] MEDS: Acetaminophen 325 MG TAB PO PRN (09:42)
[2020-01-22] MEDS: Midodrine HCl 2.5 MG TAB PO SCH ×3 (09:42→21:41)
[2020-01-22] MEDS: Metamucil PACK PO SCH (09:44)
[2020-01-22] MEDS: Polyethylene Glycol 3350 17 GM Packet PO SCH (09:44)
[2020-01-22] MEDS: traZODone HCl 50 MG TAB PO SCH (21:52)
[2020-01-22] MEDS: Atorvastatin Calcium 10 MG TAB PO SCH (21:53)
[2020-01-23] MEDS: Acetaminophen 325 MG TAB PO PRN (09:09)
[2020-01-23] MEDS: Polyethylene Glycol 3350 17 GM Packet PO SCH (09:09)
[2020-01-23] MEDS: Aspirin 81 mg Enteric Coated Tablet PO SCH (09:09)
[2020-01-23] MEDS: Midodrine HCl 2.5 MG TAB PO SCH ×3 (09:09→20:13)
[2020-01-23] MEDS: Senokot S 8.6-50 MG TAB PO SCH ×2 (09:09→20:14)
[2020-01-23] MEDS: Amiodarone 200 MG TAB PO SCH ×2 (09:10→20:14)
[2020-01-23] MEDS: Ferrous Sulfate 325 MG TAB PO SCH (09:10)
[2020-01-23] MEDS: Folic Acid 1 MG TAB PO SCH (09:10)
[2020-01-23] MEDS: Multivitamin W/ Minerals 1 TAB PO SCH (09:10)
[2020-01-23] MEDS: Potassium Chloride 20 MEQ TAB PO SCH (09:10)
[2020-01-23] MEDS: Metamucil PACK PO SCH (09:27)
[2020-01-23] MEDS ORDERED: traZODone HCl 50 MG TAB PO PRN (13:40)
[2020-01-23] MEDS: Atorvastatin Calcium 10 MG TAB PO SCH (20:14)
[2020-01-24] MEDS: Ziprasidone 20 MG CAP PO PRN (01:10)
[2020-01-24] MEDS: Midodrine HCl 2.5 MG TAB PO SCH ×3 (08:24→20:50)
[2020-01-24] MEDS: Potassium Chloride 20 MEQ TAB PO SCH (08:24)
[2020-01-24] MEDS: Multivitamin W/ Minerals 1 TAB PO SCH (08:24)
[2020-01-24] MEDS: Ferrous Sulfate 325 MG TAB PO SCH (08:24)
[2020-01-24] MEDS: Amiodarone 200 MG TAB PO SCH ×2 (08:25→20:50)
[2020-01-24] MEDS: Polyethylene Glycol 3350 17 GM Packet PO SCH (08:25)
[2020-01-24] MEDS: Senokot S 8.6-50 MG TAB PO SCH ×2 (08:25→20:50)
[2020-01-24] MEDS: Aspirin 81 mg Enteric Coated Tablet PO SCH (08:25)
[2020-01-24] MEDS: Folic Acid 1 MG TAB PO SCH (08:25)
[2020-01-24] MEDS: Metamucil PACK PO SCH (08:25)
[2020-01-24] MEDS: Atorvastatin Calcium 10 MG TAB PO SCH (20:50)
[2020-01-24] MEDS: traZODone HCl 50 MG TAB PO SCH (20:50)
[2020-01-25] MEDS: Polyethylene Glycol 3350 17 GM Packet PO SCH (08:20)
[2020-01-25] MEDS: Folic Acid 1 MG TAB PO SCH (08:20)
[2020-01-25] MEDS: Metamucil PACK PO SCH (08:20)
[2020-01-25] MEDS: Senokot S 8.6-50 MG TAB PO SCH ×2 (08:20→20:06)
[2020-01-25] MEDS: Midodrine HCl 2.5 MG TAB PO SCH ×2 (08:20→20:06)
[2020-01-25] MEDS: Amiodarone 200 MG TAB PO SCH (08:21)
[2020-01-25] MEDS: Aspirin 81 mg Enteric Coated Tablet PO SCH (08:21)
[2020-01-25] MEDS: Ferrous Sulfate 325 MG TAB PO SCH (08:21)
[2020-01-25] MEDS: Multivitamin W/ Minerals 1 TAB PO SCH (08:22)
[2020-01-25] MEDS: Potassium Chloride 20 MEQ TAB PO SCH (08:23)
[2020-01-25] MEDS: Atorvastatin Calcium 10 MG TAB PO SCH (20:06)
[2020-01-25] MEDS: traZODone HCl 50 MG TAB PO SCH (20:06)
[2020-01-26] MEDS: Midodrine HCl 2.5 MG TAB PO SCH ×3 (07:38→20:39)
[2020-01-26] MEDS: Folic Acid 1 MG TAB PO SCH (09:33)
[2020-01-26] MEDS: Ferrous Sulfate 325 MG TAB PO SCH (09:33)
[2020-01-26] MEDS: Multivitamin W/ Minerals 1 TAB PO SCH (09:33)
[2020-01-26] MEDS: Aspirin 81 mg Enteric Coated Tablet PO SCH (09:33)
[2020-01-26] MEDS: Senokot S 8.6-50 MG TAB PO SCH ×2 (09:33→20:36)
[2020-01-26] MEDS: Potassium Chloride 20 MEQ TAB PO SCH (09:33)
[2020-01-26] MEDS: Metamucil PACK PO SCH (09:34)
[2020-01-26] MEDS: Polyethylene Glycol 3350 17 GM Packet PO SCH (09:34)
[2020-01-26] MEDS: Atorvastatin Calcium 10 MG TAB PO SCH (20:36)
[2020-01-26] MEDS: Mirtazapine 15 MG TAB PO SCH (20:37)
[2020-01-26] MEDS: traZODone HCl 50 MG TAB PO SCH (20:37)
[2020-01-27] MEDS: Aspirin 81 mg Enteric Coated Tablet PO SCH (09:15)
[2020-01-27] MEDS: Midodrine HCl 2.5 MG TAB PO SCH ×3 (09:15→22:19)
[2020-01-27] MEDS: Multivitamin W/ Minerals 1 TAB PO SCH (09:15)
[2020-01-27] MEDS: Senokot S 8.6-50 MG TAB PO SCH ×2 (09:15→22:19)
[2020-01-27] MEDS: Folic Acid 1 MG TAB PO SCH (09:16)
[2020-01-27] MEDS: Ferrous Sulfate 325 MG TAB PO SCH (09:16)
[2020-01-27] MEDS: Potassium Chloride 20 MEQ TAB PO SCH (09:16)
[2020-01-27] MEDS: Metamucil PACK PO SCH (09:16)
[2020-01-27] MEDS: Polyethylene Glycol 3350 17 GM Packet PO SCH (09:16)
[2020-01-27] MEDS: ALPRAZolam 0.25 MG TAB PO PRN (12:59)
[2020-01-27 13:08] LABS: Bilirubin Negative (Negative); Blood, Urine Negative (Negative); Clarity Slightly Cloudy (Clear); Glucose, Urine (Dipstick) Negative (Negative); Ketone, Urine Negative (Negative); Leukocyte Negative (Negative); Nitrite Negative (Negative); Protein, Urine (Dipstick) Negative (Neg-Trace); Specific Gravity, Urine 1.015 (1.005-1.030); Urobilinogen 0.2 mg/dL (Less than 2)
[2020-01-27 13:09] LABS: Urine Culture Reflex No No
[2020-01-27] MEDS: Atorvastatin Calcium 10 MG TAB PO SCH (22:19)
[2020-01-27] MEDS: Mirtazapine 15 MG TAB PO SCH (22:19)
[2020-01-27] MEDS: traZODone HCl 50 MG TAB PO SCH (22:19)
[2020-01-28] MEDS: Multivitamin W/ Minerals 1 TAB PO SCH (08:21)
[2020-01-28] MEDS: Metamucil PACK PO SCH (08:21)
[2020-01-28] MEDS: Aspirin 81 mg Enteric Coated Tablet PO SCH (08:21)
[2020-01-28] MEDS: Folic Acid 1 MG TAB PO SCH (08:21)
[2020-01-28] MEDS: Polyethylene Glycol 3350 17 GM Packet PO SCH (08:21)
[2020-01-28] MEDS: Midodrine HCl 2.5 MG TAB PO SCH ×3 (08:21→20:36)
[2020-01-28] MEDS: Ferrous Sulfate 325 MG TAB PO SCH (08:22)
[2020-01-28] MEDS: Potassium Chloride 20 MEQ TAB PO SCH (08:22)
[2020-01-28] MEDS: Senokot S 8.6-50 MG TAB PO SCH ×2 (08:22→20:34)
[2020-01-28] MEDS: Mirtazapine 15 MG TAB PO SCH (20:34)
[2020-01-28] MEDS: traZODone HCl 50 MG TAB PO SCH (20:37)
[2020-01-28] MEDS: Atorvastatin Calcium 10 MG TAB PO SCH (20:37)
[2020-01-29] MEDS: Midodrine HCl 2.5 MG TAB PO SCH ×3 (08:05→23:35)
[2020-01-29] MEDS: Polyethylene Glycol 3350 17 GM Packet PO SCH (08:05)
[2020-01-29] MEDS: Aspirin 81 mg Enteric Coated Tablet PO SCH (08:06)
[2020-01-29] MEDS: Folic Acid 1 MG TAB PO SCH (08:06)
[2020-01-29] MEDS: Ferrous Sulfate 325 MG TAB PO SCH (08:06)
[2020-01-29] MEDS: Metamucil PACK PO SCH (08:06)
[2020-01-29] MEDS: Senokot S 8.6-50 MG TAB PO SCH ×2 (08:06→23:33)
[2020-01-29] MEDS: Multivitamin W/ Minerals 1 TAB PO SCH (08:07)
[2020-01-29] MEDS: Potassium Chloride 20 MEQ TAB PO SCH (08:07)
[2020-01-29] MEDS: ALPRAZolam 0.25 MG TAB PO PRN (09:49)
[2020-01-29] MEDS: Ziprasidone 20 MG CAP PO PRN (13:00)
[2020-01-29] MEDS: ALPRAZolam 0.5 MG TAB PO PRN (13:39)
[2020-01-29] MEDS ORDERED: OLANZapine 5 MG TAB PO SCH (21:00)
[2020-01-29] MEDS: Mirtazapine 15 MG TAB PO SCH (23:31)
[2020-01-29] MEDS: Atorvastatin Calcium 10 MG TAB PO SCH (23:33)
[2020-01-29] MEDS: traZODone HCl 50 MG TAB PO SCH (23:35)
[2020-01-30] MEDS: Ferrous Sulfate 325 MG TAB PO SCH (10:08)
[2020-01-30] MEDS: Folic Acid 1 MG TAB PO SCH (10:08)
[2020-01-30] MEDS: Aspirin 81 mg Enteric Coated Tablet PO SCH (10:08)
[2020-01-30] MEDS: Senokot S 8.6-50 MG TAB PO SCH ×3 (10:09→22:05)
[2020-01-30] MEDS: Potassium Chloride 20 MEQ TAB PO SCH (10:09)
[2020-01-30] MEDS: Midodrine HCl 2.5 MG TAB PO SCH ×4 (10:09→22:04)
[2020-01-30] MEDS: Multivitamin W/ Minerals 1 TAB PO SCH (10:09)
[2020-01-30] MEDS: Metamucil PACK PO SCH (10:10)
[2020-01-30] MEDS: Polyethylene Glycol 3350 17 GM Packet PO SCH (10:10)
[2020-01-30 11:37] VITALS: BMI 19.9
[2020-01-30] MEDS ORDERED: OLANZapine 5 MG TAB PO SCH (13:15)
[2020-01-30] MEDS: ALPRAZolam 0.5 MG TAB PO PRN (16:33)
[2020-01-30] MEDS: Mirtazapine 15 MG TAB PO SCH ×2 (22:04→22:05)
[2020-01-30] MEDS: traZODone HCl 50 MG TAB PO SCH ×2 (22:05)
[2020-01-30] MEDS: OLANZapine 5 MG TAB PO SCH ×2 (22:05)
[2020-01-30] MEDS: Atorvastatin Calcium 10 MG TAB PO SCH ×2 (22:05)
[2020-01-31] MEDS: Senokot S 8.6-50 MG TAB PO SCH ×2 (09:33→20:20)
[2020-01-31] MEDS: Potassium Chloride 20 MEQ TAB PO SCH (09:33)
[2020-01-31] MEDS: Multivitamin W/ Minerals 1 TAB PO SCH (09:33)
[2020-01-31] MEDS: Ferrous Sulfate 325 MG TAB PO SCH (09:33)
[2020-01-31] MEDS: Polyethylene Glycol 3350 17 GM Packet PO SCH (09:33)
[2020-01-31] MEDS: Aspirin 81 mg Enteric Coated Tablet PO SCH (09:33)
[2020-01-31] MEDS: Folic Acid 1 MG TAB PO SCH (09:33)
[2020-01-31] MEDS: Midodrine HCl 2.5 MG TAB PO SCH ×3 (09:33→20:21)
[2020-01-31] MEDS: OLANZapine 5 MG TAB PO SCH (20:20)
[2020-01-31] MEDS: Mirtazapine 15 MG TAB PO SCH (20:21)
[2020-01-31] MEDS: traZODone HCl 50 MG TAB PO SCH (20:21)
[2020-01-31] MEDS: Atorvastatin Calcium 10 MG TAB PO SCH (20:21)
[2020-02-01] MEDS: ALPRAZolam 0.5 MG TAB PO PRN ×3 (00:06→22:09)
[2020-02-01] MEDS: Midodrine HCl 2.5 MG TAB PO SCH ×3 (09:07→21:55)
[2020-02-01] MEDS: Folic Acid 1 MG TAB PO SCH (09:07)
[2020-02-01] MEDS: Polyethylene Glycol 3350 17 GM Packet PO SCH (09:08)
[2020-02-01] MEDS: Potassium Chloride 20 MEQ TAB PO SCH (09:08)
[2020-02-01] MEDS: Aspirin 81 mg Enteric Coated Tablet PO SCH (09:09)
[2020-02-01] MEDS: Senokot S 8.6-50 MG TAB PO SCH ×2 (09:09→21:55)
[2020-02-01] MEDS: Ferrous Sulfate 325 MG TAB PO SCH (09:09)
[2020-02-01] MEDS: Multivitamin W/ Minerals 1 TAB PO SCH (09:09)
[2020-02-01] MEDS: Ziprasidone 20 MG CAP PO PRN (12:39)
[2020-02-01] MEDS: traZODone HCl 50 MG TAB PO SCH (21:55)
[2020-02-01] MEDS: Atorvastatin Calcium 10 MG TAB PO SCH (21:55)
[2020-02-01] MEDS: Mirtazapine 15 MG TAB PO SCH (21:55)
[2020-02-02] MEDS: Polyethylene Glycol 3350 17 GM Packet PO SCH (08:06)
[2020-02-02] MEDS: Senokot S 8.6-50 MG TAB PO SCH (08:06)
[2020-02-02] MEDS: Folic Acid 1 MG TAB PO SCH (08:06)
[2020-02-02] MEDS: Multivitamin W/ Minerals 1 TAB PO SCH (08:06)
[2020-02-02] MEDS: Ferrous Sulfate 325 MG TAB PO SCH (08:06)
[2020-02-02] MEDS: Aspirin 81 mg Enteric Coated Tablet PO SCH (08:06)
[2020-02-02] MEDS: Midodrine HCl 2.5 MG TAB PO SCH (08:07)
[2020-02-02] MEDS: Potassium Chloride 20 MEQ TAB PO SCH (08:07)
[2020-02-02 09:14] VITALS: BP 110/50; TEMP 96.9
--- NOTE | 2020-02-06 09:27 | DIS ---
DATE OF ADMISSION: 01/05/2020 DATE OF DISCHARGE: 02/02/2020 REASON FOR ADMISSION: Skilled Rehab in [place] [facility] after recent hospitalization. DISPOSITION: Home with Anum/daughter who is a primary family day carer. CONDITION ON DISCHARGE: Stable. DISCHARGE DIAGNOSES: 1. Physical Deconditioning.. 2. Multiple vessel coronary artery disease, status post coronary artery bypass graft x4. 3. Postoperative anemia. 4. Postoperative delirium. 5. Alzheimer's disease, late onset. 6. Dementia with behavioral disturbances. 7. Small pneumothorax per CT scan secondary to fall, asymptomatic, deemed secondary to post operative sequelae, Conservative management only. Resolved. 8. History of hypertension, now with orthostatic hypotension. 9. Dyslipidemia. 10. Swallowing dysfunction, oropharyngeal. 11. Insomnia. 12. Adult failure to thrive. 13. History of ground level fall. 14. Scalp laceration secondary to fall, requiring repair. Resolved. DIET: Soft, mechanical, nectar thickened, no straws. ACTIVITY: 1. Ad julianna. Needs and stand by assist. 2. Fall precautions. 3. Follow up with new PCP in [place] on 02/05 at 0900. 4. Follow up with new wood milling machine tender in [place] on 02/13/2020 as scheduled. 5. Aspiration precautions. 6. MEDICATIONS: 1. Trazodone 50 mg p.o. at bedtime p.r.n. 2. Aspirin 81 mg p.o. daily. 3. Ferrous sulfate 325 mg p.o. daily. 4. Atorvastatin 10 mg p.o. daily. 5. Polyethylene glycol 17 g p.o. daily. 6. Midodrine 10 mg p.o. b.i.d. 7. Mirtazapine 7.5 mg at bedtime. 8. Alprazolam 0.5 mg p.o. q.8 p.r.n. 9. Potassium chloride 20 mEq p.o. daily. 10. Sennosides or Senokot S one tab p.o. b.i.d. 11. Multivitamins p.o. daily. 12. Acetaminophen 650 mg p.o. q.4 hours p.r.n. HISTORY OF THE PRESENT ILLNESS AND HOSPITAL COURSE: Mr. Avila is a 79- year-oldCaucasian male with history of advancing dementia.He used to live with his , Tangela in [place]. serves as patient's primary railroad surveyor and surrogate decision maker of patient. The patient had a history of coronary artery disease and had a recent CABG a month ago. He was reported to have an acute delirium and agitation during the postoperative period that requires Geodon daily and 24 hour sitter. The patient was started on aspirin for CAD. He was deemed not a good candidate for anticoagulation secondary to increased risk of falling and confusion. He was then discharged to [facility] on 01/02/2020 for Skilled Rehab. While in [facility], the patient had a fall while is in the room as a sitter and fell asleep. The patient apparently walked out of the corridor and he fell to the floor on 01/04/2020. He sustained a scalp laceration on the occiput, that required repair. His CT of the head at that time showed no acute intracranial process. CT of the cervical spine done at that time reported to have a small pneumothorax on the left which was not identified in the chest x-ray.He was then transferred back to [facility] for further evaluation and observation. The pneumothorax was considered small and recommended conservative management only. The patient has been symptom-free since. He was transferred back on 01/05/2020 to [facility] to continue his rehab. The patient [facility] The patient did well with rehab and was stable and was walking without assistive device prior to discharge. The patient only needs to have a standby assist when ambulating as the patient has very poor safety awareness and his gait was uneven and remains at high risk for falls. Over the course, patient has completed his Amiodarone for a month as per Lead Machinist's and Cardiovascular's recommendations. It was also noted that patient's blood pressures have trended down. His antihypertensives including NEERAJ inhibitor and beta melania were weaned off completely. His blood pressure stabilized with titrated dose of Midodrine. During his rehab stay, the patient was noted to have intermittent confusion associated with hallucination, insomnia, and difficulty following simple commands affecting his oral intake and nutritional status. When he first came in to rehab, the patient was on a pureed diet and nectar thickened. The patient does not like the consistency of diet. After speech therapy had evaluated the patient, his diet was upgraded to soft mechanical, but maintained on nectar thickened liquids without straw. The patient did better with the current diet. The patient's psych medications were adjusted several times due to increasing confusion, inability to sleep; agitation and wandering behaviors. He was started on mirtazapine, anxiolytic. and trazodone. He was also tried on Zyprexa, but reported to have more confusion with the medication. After several discussions with the family, family decided that patient will go to his daughter's house in [place] and Anum, his daughter, will serve as a primary caregiver as his who lives in [place] has had issues with her own health herself and unable to provide higher level of care to patient. After we stabilized patient's overall behaviors and the daughter was comfortable taking care of the patient at home, patient was discharged on 02/02/2020 with a plan to reestablish care with new PCP in [place] and new wood milling machine tender in [place]. We also discussed possibility of outpatient cardiac rehab and this will be discussed by patient's daughter with a new wood milling machine tender. At this time, patient's confusion and advanced dementia is the main barrier to follow instructions with therapy and daughter is more comfortable doing this. Also, during this rehab stay, the patient's blood pressure was noted to be on the low side. His lisinopril and amlodipine were discontinued subsequently one after the other. Initially, patient reported some dizziness with it. Due to the persistence of hypotensive episodes, the patient was started on midodrine and was titrated appropriately. His blood pressure prior to discharge was stable at low 100s over 50s to 60s without symptoms. The patient likewise completed his amiodarone for a month with a recommended dose of the wood milling machine tender and the recruiting specialist. On 02/02/2020, after readjustment of patient's psych medication and reassessment, I had a lengthy discussion again with the family as represented by his daughter, Rosana, who at that time was comfortable taking the patient home with a 24-hour sitter. All the medications were discussed with the patient's daughter/railroad surveyor and all her questions were answered to her satisfaction. Vital signs prior to discharge; blood pressure 110/50; temperature 96.9; pulse 98, initially 88 prior to discharge; respirations 19; O2 sats 98% on room air. Weight 134 and 14.4 ounces, height 5 feet 9 inches. Physical examination was done prior to discharge. The patient remains confused, but awake, alert, and cooperative and follow simple commands. He knows his name and could identify his daughter, Anum and remembers his ,Tangela. He was excited to go back home. LABORATORY DATA: 01/20/2020; WBC 7.0, hemoglobin 10.8, hematocrit 34.5, platelets 219. Sodium 141, potassium 4.1, BUN 14, creatinine 0.99, glucose 94. Liver function tests within normal limits. Albumin 3.4. UA on 01/27/2020, negative for leukocytes, blood, or nitrite. Chest x-ray on 01/20/2020 showed no residual pneumothorax appreciated. Time spent on this discharge was 32 minutes in examining the patient, discussion of patient's status and coordinating care. Job ID: [id number] MTDD
--- NOTE | 2020-02-06 22:23 | PQF ---
CLINICAL DOCUMENTATION CLARIFICATION FORM: Dear : Supriya Wilson MD Date / Time: 02/06/2020 Please exercise your independent, professional judgment in responding to the clarification form. Clinical indicators are provided on the bottom of this form for your review Please check appropriate box(es): [ ] Protein Calorie Malnutrition: [ ] Mild [ ] Moderate [ ] Severe [ X ] Other Malnutrition (please specify) __Moderate malnutrition in acute illness [ ] Underweight without malnutrition [ ] Cachexia [ ] Other diagnosis (Please specify if any) [ ] Unable to determine In addition, please specify: Present on Admission (POA): (X ] Yes [ ] No [ ] Unable to determine Physician Signature: Date/Time: For continuity of documentation, please document condition throughout progress notes and discharge summary. Thank You To be completed by CDI/Coding staff for physician review: Present Clinical Indicators - Signs / Symptoms / Labs Results and Location in Medical Record [x] Adult Failure to thrive Progress notes on 01/31 [x] BMI of 19.9 Physician home day care provider Two or More of the Following ASPEN Criteria: [x] Anorexia Progress notes on 01/25 [ ] Weight Loss [ ] Loss of Muscle Mass [ ] Loss of Subcutaneous Fat [ ] Localized/Generalized Fluid Accumulation [ ] Diminished Handgrip Strength Present Risk Factors Results and Location in Medical Record [x] Physical deconditioning, general weakness H&P on 01/05 [x] Aged person 79 yrs H&P on 01/05 [ ] Chronic illness cancer, cirrhosis [ ] Medication [ ] PEG tube [ ] Short gut syndrome Present Treatments Results and Location in Medical Record [x] Improving overall dietary intake with soft diet Progress notes on 01/29 [x] Multivitamin with minerals 1 tablet Resumed at home 01/25 [ ] TPN / tube feedings [ ] Assistance with feeding [X ] Appetite stimulant - medication Progress notes 01/25 CDS/Behavioral Health Care Manager Signature: AAS Phone #: Date/Time: 02/06/2020 Moderate Malnutrition (in acute illness) ? Energy Intake: <75% of estimated energy requirement for > 7 days ? Weight Loss: 1-2%/1 week; 5%/ 1 month; 7.5%/3 months ? Other: mild body fat loss; mild muscle mass loss; mild fluid accumulation; Severe Malnutrition (in acute illness) ? Energy Intake: ? 50% of estimated energy requirement for ? 5 days ? Weight Loss: >2%/1 week; >5%/1 month; >7.5%/3 months ? Other: moderate body fat loss; moderate muscle mass loss; moderate- severe fluid accumulation; measurably reduced healthcare translator strength Moderate Malnutrition (in chronic illness) ? Energy Intake: <75% of estimated energy requirement for ?1 month ? Weight Loss: 5%/1 month; 7.5%/3 months; 10%/6 months; 20%/1 year ? Other: mild body fat loss; mild muscle mass loss; mild fluid accumulation Severe Malnutrition (in chronic illness) ? Energy Intake: ?75% of estimated energy requirement for ?1 month ? Weight Loss: >5%/1 month; >7.5%/3 months; >10%/6 months; >20%/1 year ? Other: severe body fat loss; severe muscle mass loss; severe fluid accumulation; measurably reduced healthcare translator strength This is a permanent part of the Medical Record MTDD
== END 2020-02-02 13:23 | disposition home or self-care (01) | DRG 948 ==
LOC: MADMS 18:01
PROVIDERS: ADMIT Family Medicine; ATTEND Family Medicine
DX: R53.1 Weakness (principal); F02.81 Dementia in other diseases classified elsewhere, unspecified severity, with behavioral disturbance; F05 Delirium due to known physiological condition; Z68.1 Body mass index [BMI] 19.9 or less, adult; E44.0 Moderate protein-calorie malnutrition; I25.10 Atherosclerotic heart disease of native coronary artery without angina pectoris; I10 Essential (primary) hypertension; R53.81 Other malaise; G30.9 Alzheimer's disease, unspecified; R26.81 Unsteadiness on feet; E78.5 Hyperlipidemia, unspecified; Z95.1 Presence of aortocoronary bypass graft; Z79.82 Long term (current) use of aspirin; Z79.899 Other long term (current) drug therapy; Z66 Do not resuscitate; G47.00 Insomnia, unspecified; R62.7 Adult failure to thrive; I95.1 Orthostatic hypotension; R63.0 Anorexia; Z90.89 Acquired absence of other organs; R13.12 Dysphagia, oropharyngeal phase; D64.9 Anemia, unspecified
CPT/HCPCS: 71046; 80053; 81001; 85025; Q0162